=== PATIENT | female | born 2000 | race Hispanic/Latino ===

== ENCOUNTER 2022-03-20 23:36 | Emergency (ER) | payer SELFPAY ==
[2022-03-21] MEDS ORDERED: Lorazepam 2 MG/ML VIAL ONE (01:20)
== END 2022-03-21 04:27 | disposition home or self-care (01) ==
LOC: CSHERS 23:36
DX: F19.10 Other psychoactive substance abuse, uncomplicated (principal); F41.1 Generalized anxiety disorder
CPT/HCPCS: 93005; 96374; J2060